=== PATIENT | female | born 1950 | race Caucasian/White ===

== ENCOUNTER 2017-09-07 08:41 | Day surgery (SDC) | payer MEDICARE, OTHER ==
[~2017-09-07] VITALS: Ht 154.9 cm; Wt 71.7 kg
[~2017-09-07 08:41] MED LIST: BUPR100 PO; BUSP10 PO; MELO7.5 PO
[2017-09-08 04:47] LABS: BASOPHILS ABSOLUTE AUTO 0.05 K/mm3 (0.00-0.23); BASOPHILS PERCENT AUTO 0 % (0-2); EOSINOPHILS ABSOLUTE AUTO 0.07 K/mm3 (0.00-0.68); EOSINOPHILS PERCENT AUTO 1 % (0-6); Hematocrit 33.5 % (33.0-51.0); Hemoglobin 10.7 g/dL (11.5-16.0); IMMATURE GRAN ABSOLUTE AUTO 0.04 K/mm3 (0.00-0.10); IMMATURE GRAN PERCENT AUTO 0 % (0-1); LYMPHOCYTES ABSOLUTE AUTO 2.01 K/mm3 (0.84-5.20); LYMPHOCYTES PERCENT AUTO 16 % (21-46); MONOCYTES ABSOLUTE AUTO 1.06 K/mm3 (0.16-1.47); MONOCYTES PERCENT AUTO 9 % (4-13); Mean Corpuscular HGB 27.4 pg (26.0-34.0); Mean Corpuscular HGB Conc 31.9 g/dL (31.5-36.5); Mean Corpuscular Volume 86 fL (80-100); Mean Platelet Volume 10.7 fL (9.1-12.4); NEUTROPHILS ABSOLUTE AUTO 9.17 K/mm3 (1.96-9.15); NEUTROPHILS PERCENT AUTO 74 % (41-73); Platelet Count 223 K/mm3 (150-400); RDW Coefficient Variation 13.2 % (11.7-14.2); RDW Standard Deviation 41.2 fL (35.1-46.3); Red Blood Cell Count 3.91 M/mm3 (3.80-5.20)
[2017-09-08 05:02] LABS: Anion Gap 6 mmol/L (6-16); Blood Urea Nitrogen 14 mg/dL (8-24); Bun/Creatinine Ratio 14.5 (12.0-20.0); CO2, Blood 30 mmol/L (21-32); Calcium, Blood 8.3 mg/dL (8.5-10.1); Chloride, Blood 106 mmol/L (98-108); Creatinine, Blood 0.96 mg/dL (0.40-1.00); Glomerular Filtration Rate >60 (60-); Glucose, Blood 121 mg/dL (70-99); Potassium, Blood 3.7 mmol/L (3.5-5.5); Sodium, Blood 142 mmol/L (136-145)
[2017-09-08] MEDS ORDERED: OXYC5 PO (12:01)
[2017-09-08] MEDS ORDERED: DOCU100 PO (12:05)
[2017-09-08] MEDS ORDERED: ASPI325EC PO (12:05)
[2017-12-15] MEDS ORDERED: BUPR100 PO (10:23)
[2017-12-15] MEDS ORDERED: Mobic7.5 MG PO (10:23)
== END 2017-09-08 13:01 | disposition home or self-care (01) ==
LOC: PRE IP 08:41 → SURS 08:41 → ORSCMMR 08:41 → SURS 08:41 → PRE IP 10:30 → EDSTATUS 10:30 → SURS 12:55 → ORSCMMR 09-08 13:01
PROVIDERS: Orthopaedic Surgery
PROC: 0SRC0J9 Replacement of Right Knee Joint with Synthetic Substitute, Cemented, Open Approach (ICD-10-PCS; principal; 2017-09-07 10:30)
DX: Z01.812 Encounter for preprocedural laboratory examination (principal); Z01.818 Encounter for other preprocedural examination; M17.11 Unilateral primary osteoarthritis, right knee; F41.9 Anxiety disorder, unspecified; Z79.899 Other long term (current) drug therapy
CPT/HCPCS: 36415; 73560-RT; 80048; 85025; 86850; 86900; 86901; 88300; 97110; 97116; 97161; 97530; C1713; C1776; G8978; G8979; J0171; J0690; J0735; J1100; J1885; J2250; J2405; J2795; J3010; J7120

== ENCOUNTER 2018-01-04 08:58 | Day surgery (SDC) | payer MEDICARE, OTHER ==
[~2018-01-04] VITALS: Ht 154.9 cm; Wt 72.1 kg
[~2018-01-04 08:58] MED LIST changes: +ASPI325EC PO; +DOCU100 PO; +Mobic7.5 MG PO; +OXYC5 PO
[2018-01-05 04:27] LABS: BASOPHILS ABSOLUTE AUTO 0.02 K/mm3 (0.00-0.23); BASOPHILS PERCENT AUTO 0 % (0-2); EOSINOPHILS ABSOLUTE AUTO 0.02 K/mm3 (0.00-0.68); EOSINOPHILS PERCENT AUTO 0 % (0-6); Hematocrit 34.4 % (33.0-51.0); Hemoglobin 11.2 g/dL (11.5-16.0); IMMATURE GRAN ABSOLUTE AUTO 0.06 K/mm3 (0.00-0.10); IMMATURE GRAN PERCENT AUTO 1 % (0-1); LYMPHOCYTES ABSOLUTE AUTO 1.11 K/mm3 (0.84-5.20); LYMPHOCYTES PERCENT AUTO 9 % (21-46); MONOCYTES ABSOLUTE AUTO 0.84 K/mm3 (0.16-1.47); MONOCYTES PERCENT AUTO 7 % (4-13); Mean Corpuscular HGB 27.4 pg (26.0-34.0); Mean Corpuscular HGB Conc 32.6 g/dL (31.5-36.5); Mean Corpuscular Volume 84 fL (80-100); Mean Platelet Volume 10.1 fL (9.1-12.4); NEUTROPHILS ABSOLUTE AUTO 9.87 K/mm3 (1.96-9.15); NEUTROPHILS PERCENT AUTO 83 % (41-73); Platelet Count 211 K/mm3 (150-400); RDW Standard Deviation 39.4 fL (35.1-46.3); Red Blood Cell Count 4.09 M/mm3 (3.80-5.20); White Blood Cell Count 11.92 K/mm3 (4.00-11.30)
[2018-01-05 04:45] LABS: Anion Gap 6 mmol/L (6-16); Blood Urea Nitrogen 12 mg/dL (8-24); Bun/Creatinine Ratio 14.6 (12.0-20.0); CO2, Blood 28 mmol/L (21-32); Calcium, Blood 8.6 mg/dL (8.5-10.1); Chloride, Blood 108 mmol/L (98-108); Creatinine, Blood 0.82 mg/dL (0.40-1.00); Glomerular Filtration Rate >60 (60-); Glucose, Blood 113 mg/dL (70-99); Potassium, Blood 3.9 mmol/L (3.5-5.5); Sodium, Blood 142 mmol/L (136-145)
[2018-01-06] MEDS ORDERED: ASPI325EC PO (07:59)
[2018-01-06] MEDS ORDERED: ROXICODONE5 MG PO (07:59)
== END 2018-01-06 10:24 | disposition home or self-care (01) ==
LOC: ORSCMMR 08:58 → SURS 08:58 → ORSCMMR 08:59 → ORD 10:30 → SURS 13:58 → ORSCMMR 01-06 10:24
PROVIDERS: Orthopaedic Surgery
PROC: 0SRD0J9 Replacement of Left Knee Joint with Synthetic Substitute, Cemented, Open Approach (ICD-10-PCS; principal; 2018-01-04 10:30)
DX: M17.12 Unilateral primary osteoarthritis, left knee (principal); F41.9 Anxiety disorder, unspecified; Z79.899 Other long term (current) drug therapy
CPT/HCPCS: 36415; 73560-LT; 80048; 85025; 86850; 86900; 86901; 88300; 97110; 97116; 97162; 97530; C1713; C1776; G8978; G8979; J0171; J0690; J0735; J1100; J1885; J2250; J2405; J2550; J2765; J2795; J3010; J7120

== ENCOUNTER 2021-06-19 09:11 | Day surgery (SDC) | payer MEDICARE, OTHER ==
[~2021-06-19] VITALS: Ht 157 cm; Wt 73.1 kg
[~2021-06-19 09:11] MED LIST changes: +CALCIUM PO; +EYE VITAMIN PO; +MAGNESIUM PO; +ROXICODONE5 MG PO; +TOCO1000 PO; +VITAMIN D310 MC4 PO; +Vitamin B Comple1 EA PO
--- NOTE | 2021-06-19 10:00 | NUR ---
Ambulatory in Day Surgery History, Chart, Medications and Allergies reviewed before start of procedure.Patient confirms NPO status and agrees with scheduled surgery. Patient reports completing Chlorhexadine shower X2 prior to admission to hospital.Surgical site prepped with 2% Chlorhexidine cloth wipe.
--- NOTE | 2021-06-19 13:22 | NUR ---
Patient up to Ambulate independently. Gait steady. Discharge instructions reviewed with patient. Patient verbalizes understanding. Copy given to patient to take home. History, Chart, Medications and Allergies reviewed before start of procedure.Patient States Post-Procedure ride home has been arranged. Discharged via wheelchair to private car for ride home.
== END 2021-06-19 13:24 | disposition home or self-care (01) ==
LOC: ORSCMMR 09:11 → ORD 10:45 → ORSCMMR 10:45
DX: C50.412 Malignant neoplasm of upper-outer quadrant of left female breast (principal); F41.9 Anxiety disorder, unspecified; Z79.899 Other long term (current) drug therapy
CPT/HCPCS: 77001; A9270; C1788; J0690; J1100; J1642; J2250; J2370; J2405; J2704; J2765; J3010; J7120